=== PATIENT | male | born 1990 | race Two or more races ===

== ENCOUNTER 2017-03-14 15:32 | Emergency (ER) | payer OTHER ==
[~2017-03-14] VITALS: Ht 167.6 cm; Wt 63.5 kg
[2017-03-14 15:33] VITALS: BP 131/65
[2017-03-14] MEDS ORDERED: LIDOCAINE HCL/PF 1% 30 ML SDV ONE (16:09)
--- NOTE | 2017-03-14 17:06 | NUR ---
LAC REPAIR DONE. 8 SUTURES NOTED. WOUND CARE PROVIDED. D/C IN STABLE CONDITION.
== END 2017-03-14 17:08 | disposition home or self-care (01) ==
LOC: ER 15:41
DX: S01.112A Laceration without foreign body of left eyelid and periocular area, initial encounter (principal); V00.131A Fall from skateboard, initial encounter; Y93.51 Activity, roller skating (inline) and skateboarding; Y92.89 Other specified places as the place of occurrence of the external cause; Y99.9 Unspecified external cause status
CPT/HCPCS: 12013; 99283; A4606; A6402; A6403 ×2; Z7610

== ENCOUNTER 2017-03-21 10:05 | Emergency (ER) | payer OTHER ==
[~2017-03-21] VITALS: Ht 167.6 cm; Wt 63.5 kg
[2017-03-21 10:10] VITALS: BP 118/66
== END 2017-03-21 10:28 | disposition home or self-care (01) ==
LOC: ER 10:09
DX: S01.112D Laceration without foreign body of left eyelid and periocular area, subsequent encounter (principal); V00.131D Fall from skateboard, subsequent encounter; Y93.51 Activity, roller skating (inline) and skateboarding; Y92.89 Other specified places as the place of occurrence of the external cause; Y99.9 Unspecified external cause status
CPT/HCPCS: A4606; Z7502; Z7610